=== PATIENT | male | born 1975 | race Native Hawaiian/Other Pacific Islander ===

== ENCOUNTER 2017-03-12 15:39 | Outpatient (CLI) | payer BC | END 2017-03-12 20:01 | disposition home or self-care (01) | LOC: RAD 15:39 | DX: M54.2 Cervicalgia (principal); R09.1 Pleurisy; R51 Headache ==

== ENCOUNTER 2018-05-10 09:54 | Outpatient (CLI) | payer BC | END 2018-05-10 19:54 | disposition home or self-care (01) | LOC: CT 09:54 | DX: R07.81 Pleurodynia (principal) ==

== ENCOUNTER 2019-02-11 09:55 | Outpatient (CLI) | payer BC | END 2019-02-11 20:41 | disposition home or self-care (01) | LOC: CT 09:55 | DX: R91.1 Solitary pulmonary nodule (principal) | CPT/HCPCS: Q9963 ==

== ENCOUNTER → 2020-09-19 14:48 | Outpatient (CLI) | payer BC, OTHER | END | disposition home or self-care (01) | LOC: RAD 14:48 | PROVIDERS: ATTEND Nurse Practitioner Family | DX: Z03.818 Encounter for observation for suspected exposure to other biological agents ruled out (principal) ==

== ENCOUNTER 2021-02-25 12:50 | Outpatient (CLI) | payer BC | END 2021-02-25 19:47 | disposition home or self-care (01) | LOC: RAD 12:50 | PROVIDERS: ATTEND Nurse Practitioner Family | DX: M25.511 Pain in right shoulder (principal) ==

== ENCOUNTER 2021-04-12 10:23 | Outpatient (CLI) | payer BC | END 2021-04-12 19:31 | disposition home or self-care (01) | LOC: CT 10:23 | PROVIDERS: ATTEND Nurse Practitioner Primary Care | DX: R51.9 Headache, unspecified (principal) ==

== ENCOUNTER 2021-09-27 10:24 | Outpatient (CLI) | payer BC | END 2021-09-27 20:03 | disposition home or self-care (01) | LOC: RAD 10:24 | PROVIDERS: ATTEND Nurse Practitioner Family | DX: M54.6 Pain in thoracic spine (principal) ==

== ENCOUNTER 2021-10-11 15:44 | Outpatient (CLI) | payer BC | END 2021-10-11 20:07 | disposition home or self-care (01) | LOC: CT 15:44 | PROVIDERS: ATTEND Nurse Practitioner Family | DX: R91.1 Solitary pulmonary nodule (principal); M54.6 Pain in thoracic spine ==